=== PATIENT | male | born 1965 | race Caucasian/White ===

== ENCOUNTER → 2016-08-05 | Outpatient (CLI) | payer OTHER ==
[~2016-08-05] MED LIST: VICODIN 5/500 505 MG PO
[2016-08-05 12:28] LABS: BUN 6 mg/dl (7-24); CARBON DIOXIDE 29 mmol/L (21-32); CHLORIDE 110 mmol/L (98-107); CHOLESTEROL 182 mg/dL (<200); CPK 97 U/L (39-308); EST GLOM FILT AFRICAN AMERICAN > 60 ml/min; GLUCOSE 98 mg/dL (65-99); HDL CHOLESTEROL 46 mg/dl (40-60); LDL CHOLESTEROL 106 mg/dL (9-159); POTASSIUM 4.1 mmol/L (3.5-5.1); SODIUM 143 mmol/L (136-145); TRIGLYCERIDES 148 mg/dl (<150); VLDL CHOLESTEROL 30 mg/dL (6-40)
== END | disposition home or self-care (01) ==
LOC: LAB 11:32
PROVIDERS: Family Medicine
DX: E78.00 Pure hypercholesterolemia, unspecified (principal)

== ENCOUNTER 2016-12-02 20:52 | Emergency (ER) | payer OTHER ==
[~2016-12-02] VITALS: Ht 175.2 cm; Wt 90.7 kg
== END 2016-12-02 21:31 | disposition home or self-care (01) ==
LOC: ED 20:52
DX: S61.011A Laceration without foreign body of right thumb without damage to nail, initial encounter (principal); F17.200 Nicotine dependence, unspecified, uncomplicated; W26.0XXA Contact with knife, initial encounter; Y93.89 Activity, other specified; Y92.89 Other specified places as the place of occurrence of the external cause; Y99.8 Other external cause status

== ENCOUNTER → 2017-09-16 | Outpatient (CLI) | payer OTHER | END | disposition home or self-care (01) | LOC: US 11:18 | DX: R60.0 Localized edema (principal) ==

== ENCOUNTER 2024-06-16 11:15 | Emergency (ER) | payer OTHER ==
[~2024-06-16] VITALS: Ht 175.2 cm; Wt 77.1 kg
[2024-06-16] MEDS ORDERED: Ketorolac Tromethamine 30 MG/ML VIAL IM ONE (13:20)
[2024-06-16] MEDS ORDERED: TRAMADOL HCL50 MG PO (13:22)
== END 2024-06-16 13:41 | disposition home or self-care (01) ==
LOC: ED 11:15
DX: F17.200 Nicotine dependence, unspecified, uncomplicated (principal); S82.61XA Displaced fracture of lateral malleolus of right fibula, initial encounter for closed fracture; W31.89XA Contact with other specified machinery, initial encounter; Y93.89 Activity, other specified; Y92.69 Other specified industrial and construction area as the place of occurrence of the external cause; Y99.0 Civilian activity done for income or pay

== ENCOUNTER → 2024-06-29 | Outpatient (CLI) | payer OTHER ==
[~2024-06-29] MED LIST changes: +TRAMADOL HCL50 MG PO
== END | disposition home or self-care (01) ==
LOC: US 13:00
PROVIDERS: ATTEND Orthopaedic Surgery
DX: I82.441 Acute embolism and thrombosis of right tibial vein (principal)

== ENCOUNTER → 2024-09-07 | Outpatient (CLI) | payer SELFPAY | END | disposition home or self-care (01) | LOC: US 13:00 | PROVIDERS: ATTEND Orthopaedic Surgery | DX: I82.441 Acute embolism and thrombosis of right tibial vein (principal); R59.0 Localized enlarged lymph nodes ==